=== PATIENT | female | born 1970 | race Hispanic/Latino ===

== ENCOUNTER → 2018-01-17 | Outpatient (CLI) | payer OTHER ==
--- NOTE | 2018-01-17 10:24 | Diagnostic Imaging Report ---
PROCEDURE:ABDOMINAL ULTRASOUND COMPARISON:None. INDICATION:Chronic abdominal pain with anemia Technique:Grayscale and color Doppler ultrasound abdomen FINDINGS: Mid segments of the abdominal aorta and inferior vena cava are of normal caliber. Normal pancreatic head and proximal body. The tail is obscured by bowel gas. The right liver span 14.5 cm. Diffusely increased and coarsened echotexture with a smooth liver margin. Portal vein diameter 8 mm; normal flow direction. Cholecystectomy. Common bile duct diameter 8mm. No intrahepatic bile duct dilation. Right kidney: 11.6 x 5 x 5.2 cm. Cortical thickness 1.7 cm. Left kidney: 12.4 x 7 x 5.3 cm. Cortical thickness 2.2 cm Both kidneys are normal. Splenic length 11.4 cm. No ascites. CONCLUSION: Echogenic liver most commonly secondary to steatosis. Dictated by: Chico Pryor M.D. on 01/17/2018 at 10:25 Electronically approved by: Chico Pryor M.D. on 01/17/2018 at 10:25
--- NOTE | 2018-01-17 10:27 | Diagnostic Imaging Report ---
PROCEDURE:PELVIC ULTRASOUND COMPARISON:None. INDICATIONS:Chronic abdominal pain with anemia TECHNIQUE: Grayscale and color Doppler transpelvic ultrasound FINDINGS: Normal-appearing anteverted uterus measuring 8.6 x 4.4 x 6.1 cm. Endometrial thickness 4 mm. Right ovary: 2.3 x 1.2 x 1.6 cm. Normal ovary. The left ovary is obscured by overlying bowel gas. No free pelvic fluid. CONCLUSION: The left ovary is obscured by bowel gas and therefore not evaluated. Otherwise, normal pelvic ultrasound. Dictated by: Chico Pryor M.D. on 01/17/2018 at 10:27 Electronically approved by: Chico Pryor M.D. on 01/17/2018 at 10:27
== END ==
LOC: US 08:48
PROVIDERS: ATTEND Family Medicine
DX: R10.9 Unspecified abdominal pain (principal); D64.9 Anemia, unspecified
CPT/HCPCS: 76700; 76856